=== PATIENT | female | born 1980 | race Caucasian/White ===

== ENCOUNTER → 2018-09-23 | Day surgery (SDC) | payer OTHER ==
[~2018-09-23] MED LIST: ALPR0.5T6 PO; ASPI-630 PO; CHLO25TA10 PO; ESCITALOPRAM OXA5 M1 PO; GABA600T7 PO; IV RINGERS,LACTATED 1000ML 1,000 ML IV SCH; LIDOCAINE 1% PF 2 ML VIAL. ID PRN; MIDAZOLAM HCL/PF 2 MG/2 ML VIAL. IV PRN; PROPOFOL 20 ML IV ONE; PROPOFOL 40 ML IV ONE; RANI150T2 PO; TOLT2TAB4 PO; fentaNYL PF VIAL 100 MCG/2 ML VIAL IV PRN
[2018-09-23 08:03] VITALS: BP 152/101
--- NOTE | 2018-09-24 16:06 | PATHOLOGY ---
[facility] Accession Number: [id number] . 01 Material submitted: . duodenum - DUODENAL BIOPSIES . 01 Clinical history: . Abdominal pain, nausea with vomiting, rule out Whipple's, celiac, eosinophilic gastritis . 02 Diagnosis: Duodenal biopsies: - No significant pathologic abnormalities. (JPM:allison; 09/24/2018) QMS/09/24/2018 . 02 Comment: Sections of the duodenal biopsy reveal segments of duodenal and small intestine mucosa. Where best oriented, the mucosal villi show no sprue-like changes or significant inflammatory changes. There is no evidence of Whipple's disease or eosinophilic enteritis. (JPM:allison; 09/24/2018) . 02 Electronically signed: . Wiley Sahni MD, Pathologist NPI- [id number] . 01 Gross description: . Received in formalin labeled "Mires, Gricelda, duodenal BX's," are 8 segments of pang soft tissue measuring 2.0 x 1.1 x 0.3 cm in aggregate dimensions and ranging from 0.3 to 0.5 cm in maximum dimension. The specimen is submitted entirely in cassette A1. (TSD; 09/23/2018) /TOB . 02 Microscopic: . . . 02 Pathologist provided ICD-10: R10.9, R11.2 . 02 CPT . 024231 Specimen Comment: A courtesy copy of this report has been sent to Specimen Comment: [phone]. Specimen Comment: Report sent to Performed at: [address], [place], [place] [id number] MD Ross Verdugo MD Phone: [phone] Performed at: 02 [facility] [address] [place], [place] [id number] MD Wiley Sahni MD Phone: [phone]
== END ==
LOC: SURG 05:58
PROVIDERS: ATTEND Internal Medicine Gastroenterology
DX: K64.0 First degree hemorrhoids (principal); K31.89 Other diseases of stomach and duodenum; K20.0 Eosinophilic esophagitis; K29.70 Gastritis, unspecified, without bleeding
CPT/HCPCS: 36415; 43239; 45378; 84702; 88305; J2704